=== PATIENT | male | born 1965 | race Caucasian/White ===

== ENCOUNTER 2020-06-20 19:13 | Emergency (ER) | payer OTHER ==
[~2020-06-20] VITALS: Ht 175.3 cm; Wt 81.6 kg
[2020-06-20 19:21] VITALS: BP 120/77
--- NOTE | 2020-06-20 19:21 | NUR ---
to bed ambulatory
--- NOTE | 2020-06-20 19:35 | NUR ---
see complete assessment.
[2020-06-20] MEDS ORDERED: IBUP-2213 PO (20:50)
[2020-06-20] MEDS ORDERED: ACET-8386 PO (20:50)
[2020-06-20 21:05] VITALS: BP 120/77
--- NOTE | 2020-06-20 21:05 | NUR ---
Patient discharged with v/s stable. Written and verbal after care instructions given and explained. Patient alert, oriented and verbalized understanding of instructions. Ambulatory with steady gait. All questions addressed prior to discharge. ID band removed. Patient advised to follow up with PMD. Rx of ibuprofen & norco given. Patient educated on indication of medication including possible reaction and side effects. Opportunity to ask questions provided and answered.
== END 2020-06-20 21:05 | disposition home or self-care (01) ==
LOC: MED 19:13
DX: S39.012A Strain of muscle, fascia and tendon of lower back, initial encounter (principal); S20.212A Contusion of left front wall of thorax, initial encounter; Z79.899 Other long term (current) drug therapy; W10.9XXA Fall (on) (from) unspecified stairs and steps, initial encounter; Y93.89 Activity, other specified; Y92.89 Other specified places as the place of occurrence of the external cause; Y99.8 Other external cause status
CPT/HCPCS: 71101; 72100; 99284